=== PATIENT | female | born 1985 | race African-American/Black ===

== ENCOUNTER 2018-04-06 13:54 | Emergency (ER) | END 2018-04-06 16:25 | disposition home or self-care (01) ==

== ENCOUNTER 2018-04-27 10:51 | Emergency (ER) | END 2018-04-27 15:30 | disposition home or self-care (01) ==

== ENCOUNTER 2018-05-01 11:44 | Emergency (ER) | END 2018-05-01 15:18 | disposition home or self-care (01) ==

== ENCOUNTER 2018-09-12 13:19 | Emergency (ER) | END 2018-09-12 16:26 | disposition home or self-care (01) ==